=== PATIENT | female | born 1995 | race Two or more races ===

== ENCOUNTER 2024-04-15 11:13 | Inpatient (IN) | payer OTHER ==
[~2024-04-15] VITALS: Ht 152.4 cm; Wt 81.6 kg
[2024-04-15 10:45] VITALS: BP 112/73
[2024-04-15] MEDS ORDERED: RINGERS SOLUTION,LACTATED 1,000 ML IV SCH (11:45)
[2024-04-15 12:30] VITALS: BP 113/74
[2024-04-15 12:30] LABS: PH,URINE 6.5 (5.0-8.0); URINE APPEARANCE Clear; URINE BILIRRUBIN Negative (NEGATIVE); URINE BLOOD Moderate; URINE COLOR Yellow; URINE GLUCOSE Negative (NEGATIVE); URINE LEUKOCYTE Small; URINE NITRATE Negative; URINE PROTEIN Negative (NEGATIVE); URINE UROBILINOGEN 0.2 E.U./dl
[2024-04-15 12:31] LABS: URINE BACTERIA 129.7 uL (0.0-1933); URINE EPITHELIAL CELLS 16.6 uL (0.0-38.8); URINE RBC 19.8 uL (0.0-20.8); URINE WBC 36.3 uL (0.0-23.2)
[2024-04-15 12:33] LABS: URINE KETONE 40 (NEGATIVE)
[2024-04-15 12:36] LABS: HEMATOCRIT 34.7 % (36.0-45.00); HEMOGLOBIN 11.4 g/dL (12.0-15.00); MEAN CELL VOLUME 79.2 fL (80.00-100.00); MEAN CORPUSCULAR HGB CONC 32.9 g/dl (32.0-36.0); PLATELET COUNT 352 K/uL (150-450); RED BLOOD COUNT 4.38 M/uL (4.00-6.00); RED CELL DISTRIBUTION WIDTH 15.5 % (11.5-14.5)
[2024-04-15 13:26] LABS: INR 1.08; PARTIAL THROMBOPLASTIN TIME 32.5 SECONDS (22.0-34.0); PROTHROMBIN TIME 11.7 SECONDS (9.0-11.5)
[2024-04-15 13:35] LABS: ALBUMIN 2.8 gm/dL (3.4-5.0); BILIRUBIN TOTAL 0.23 mg/dL (0.3-1.2); CALCIUM 9.2 mg/dL (8.5-10.1); CREATININE SERUM 0.52 mg/dL (0.55-1.02); GFR 140.41; POTASSIUM 4.15 mEq/L (3.5-5.1); TOTAL PROTEIN 6.8 gm/dL (6.4-8.2)
[2024-04-15] MEDS ORDERED: AMPICILLIN SODIUM 2,000 MG in 0.9 % SODIUM CHLORIDE 100 ML IV SCH (15:03)
[2024-04-15] MEDS ORDERED: CHILDREN'S ASPI81 MG PO (16:03)
[2024-04-15] MEDS ORDERED: PRENATAL TABLE1 EAC4 PO (16:03)
[2024-04-15 16:13] VITALS: BP 103/68
[2024-04-15 20:00] VITALS: BP 90/60
[2024-04-15 23:34] VITALS: BP 111/56
[2024-04-16 04:15] VITALS: BP 104/50
[2024-04-16 06:59] LABS: HEMATOCRIT 32.3 % (36.0-45.00); HEMOGLOBIN 10.6 g/dL (12.0-15.00); MEAN CELL VOLUME 79.2 fL (80.00-100.00); MEAN CORPUSCULAR HEMOGLOBIN 26.1 pg (27.00-32.0); MEAN CORPUSCULAR HGB CONC 32.9 g/dl (32.0-36.0); PLATELET COUNT 329 K/uL (150-450); RED BLOOD COUNT 4.07 M/uL (4.00-6.00); RED CELL DISTRIBUTION WIDTH 15.3 % (11.5-14.5)
[2024-04-16 07:58] VITALS: BP 112/60
[2024-04-16 12:03] VITALS: BP 117/67
[2024-04-16 15:30] VITALS: BP 108/62
[2024-04-16] MEDS ORDERED: DOCUSATE SODIUM 100MG CAP PO SCH (19:00)
[2024-04-16] MEDS ORDERED: DOCUSATE SODIUM 100MG CAP PO ONE (19:28)
[2024-04-16] MEDS ORDERED: AMPICILLIN SODIUM 2,000 MG VIAL ONE (19:33)
[2024-04-16 20:00] VITALS: BP 116/51
[2024-04-16 23:56] VITALS: BP 104/60
[2024-04-17 04:14] VITALS: BP 92/51
[2024-04-17 07:28] VITALS: BP 102/63
[2024-04-17 12:24] VITALS: BP 106/59
[2024-04-17 15:46] VITALS: BP 120/55
[2024-04-17 19:57] VITALS: BP 114/60
[2024-04-17 23:20] VITALS: BP 101/60
[2024-04-18] VITALS (7 sets, daily range): BP systolic 96–119; BP diastolic 51–69
[2024-04-18] MEDS ORDERED: MISOPROSTOL 100 MCG TABLET VAG ONE ×2 (18:45→23:45)
[2024-04-18] MEDS ORDERED: PROMETHAZINE HCL 50 MG/ML AMPUL IM ONE ×2 (19:41→20:30)
[2024-04-18] MEDS ORDERED: MEPERIDINE HCL/PF 50 MG/ML VIAL IV ONE ×2 (20:30→23:00)
[2024-04-18] MEDS ORDERED: PROMETHAZINE HCL 50 MG/ML AMPUL IV ONE (23:00)
[2024-04-19] VITALS (8 sets, daily range): BP systolic 100–118; BP diastolic 61–72
[2024-04-19] MEDS ORDERED: CHLORHEXIDINE GLUCONATE 120 ML BOTTLE TOP ONE ×2 (00:14→01:05)
[2024-04-19] MEDS ORDERED: OXYTOCIN 20 UNITS/1000ML RL PIGGYBAG IV ONE ×2 (00:14→01:05)
[2024-04-19] MEDS ORDERED: MORPHINE SULFATE 4 MG/ML VIAL IV ONE (00:30)
[2024-04-19] MEDS ORDERED: OXYTOCIN 1,000 ML IV SCH (05:00)
[2024-04-19] MEDS ORDERED: IBUprofen 400 MG TABLET PO PRN (05:00)
[2024-04-19] MEDS ORDERED: CHLORHEXIDINE GLUCONATE 120 ML BOTTLE TP SCH (05:00)
[2024-04-19 07:17] LABS: HEMATOCRIT 33.4 % (36.0-45.00); MEAN CELL VOLUME 80.4 fL (80.00-100.00); MEAN CORPUSCULAR HEMOGLOBIN 26.4 pg (27.00-32.0); MEAN CORPUSCULAR HGB CONC 32.8 g/dl (32.0-36.0); PLATELET COUNT 339 K/uL (150-450); RED BLOOD COUNT 4.16 M/uL (4.00-6.00); RED CELL DISTRIBUTION WIDTH 14.8 % (11.5-14.5)
== END 2024-04-19 15:39 | disposition home or self-care (01) | DRG 805 ==
LOC: LDR 11:13 → OB/GYN 04-19 08:49
PROVIDERS: Obstetrics & Gynecology; ADMIT Student in an Organized Health Care Education/Training Program; ATTEND Student in an Organized Health Care Education/Training Program
PROC: 4A1HXCZ Monitoring of Products of Conception, Cardiac Rate, External Approach (ICD-10-PCS; 2024-04-15)
PROC: 3E033VJ Introduction of Other Hormone into Peripheral Vein, Percutaneous Approach (ICD-10-PCS; 2024-04-18)
PROC: 10E0XZZ Delivery of Products of Conception, External Approach (ICD-10-PCS; principal; 2024-04-19)
PROC: 3E0P7VZ Introduction of Hormone into Female Reproductive, Via Natural or Artificial Opening (ICD-10-PCS; 2024-04-19)
DX: O32.1XX0 Maternal care for breech presentation, not applicable or unspecified (principal); O34.32 Maternal care for cervical incompetence, second trimester; O41.1220 Chorioamnionitis, second trimester, not applicable or unspecified; O60.12X0 Preterm labor second trimester with preterm delivery second trimester, not applicable or unspecified; O41.1420 Placentitis, second trimester, not applicable or unspecified; Z3A.21 21 weeks gestation of pregnancy; Z37.1 Single stillbirth; Z20.822 Contact with and (suspected) exposure to COVID-19